=== PATIENT | male | born 1970 ===

== ENCOUNTER 2020-04-27 13:48 | Emergency (ER) | payer SELFPAY ==
[~2020-04-27] VITALS: Ht 172.7 cm; Wt 185.0 kg
[2020-04-27 14:10] VITALS: BP 156/96
--- NOTE | 2020-04-27 15:55 | NUR ---
PT GIVEN MEAL TRAY AND BUS PASS, PT CLEARED BY PSYCH RESIDENTIAL GLAZIER TO DC HOME/LH DICONTINUED
== END 2020-04-27 16:22 | disposition home or self-care (01) ==
LOC: ED 16:00
DX: Z00.00 Encounter for general adult medical examination without abnormal findings (principal)
CPT/HCPCS: 99283